=== PATIENT | female | born 1960 | race Caucasian/White ===

== ENCOUNTER 2016-12-08 19:13 | Emergency (ER) | payer OTHER ==
[~2016-12-08] VITALS: Ht 160 cm; Wt 68.0 kg
[~2016-12-08 19:13] MED LIST: TOPI100T20 PO
[2016-12-08 19:18] VITALS: TEMP 36.6; Ht 160 cm; Wt 68.0 kg
[2016-12-08] MEDS ORDERED: FENTANYL CITRATE INJ 50 MCG/1 ML 2 ML VIAL IV STA ×4 (19:30→22:41)
--- NOTE | 2016-12-08 19:58 | EMERGENCY ROOM VISIT NOTE ---
ED Visit Note First contact with patient: 19:23 CHIEF COMPLAINT: Left Ankle pain HISTORY OF PRESENT ILLNESS: This 56-year-old female patient presents to the emergency department approximally 30 minutes after sustaining an injury to the left ankle when she stepped off of the sidewalk. The patient states she was stepping off of her porch, onto the concrete sidewalk, when she believes her left foot was half off of the curb. The patient states the foot slipped off the curb, and she fell, twisting her left ankle. The patient denies head injury. She complains of left ankle pain, deformity, swelling. The patient complains of pain along the medial aspect of the ankle. The patient denies pain of the foot. The patient rates the pain as constant and 10/10. The patient is not able to bear weight on the foot. Constant pain, worse with movement, weight bearing, and the dependent position. No knee pain, the patient is able to move their toes. No numbness or weakness of the foot, no laceration. The patient has not had a previous fracture to this ankle. The patient has taken nothing for the pain. The patient denies any other injury. The patient did last eat at 1830 hrs. She states she had 2 pieces of pizza at that time. REVIEW OF SYSTEMS: A 6 system review of systems was completed with positives and pertinent negatives listed in the HPI. ALLERGIES: None MEDICATIONS: Topamax PMH: Migraines SOCIAL HISTORY: Lives locally with family. She denies drug, alcohol, tobacco use. PHYSICAL EXAM: Vital Signs: Reviewed Nurse's notes, vital signs stable. GENERAL : 56-year-old female, no acute distress, but appears in pain, well-developed, well-nourished. MENTAL STATUS: Alert, oriented to person place and time, and cooperative. MUSCULOSKELETAL: The left ankle is swollen and tender over the lateral malleolus, but the skin is intact and there is no ligamentous instability. There is deformity and bruising on the medial aspect of the ankle. There is no fifth metatarsal tenderness. There is no tenderness over the rest of the foot. There is no calf or tibia/fibular tenderness. There is no visual deformity of the foot. The foot and toes are warm and well-perfused. Dorsalis pedis pulse 2+. Sensation to pain and light touch is intact. Capillary refill less than 2 seconds. RADIOLOGY: X-Ray Left Ankle (pre-reduction): FINDINGS: There is a displaced/dislocated trimalleolar left ankle fracture. The talus demonstrates up to 11 mm of lateral displacement. Diffuse soft tissue swelling. No radiopaque foreign bodies. IMPRESSION: Lateral displaced/dislocated trimalleolar left ankle fracture. X-Ray Left Ankle (post-reduction): FINDINGS: Overlying splint material obscures fine bony detail. Status post reduction of the left ankle trimalleolar fracture. There is improved anatomic alignment. There is approximately 4 mm of lateral displacement of the talus in relation to the distal tibia. There is also 2 mm of lateral displacement and 7 mm of posterior displacement of the distal fibular fracture. Minimally displaced fracture of the posterior malleolus. Plantar heel spur. IMPRESSION: Trimalleolar left ankle fracture with improved anatomic alignment status post reduction. However, the fractures still demonstrate displacement as described above. CT-Scan Left Ankle: FINDINGS: There is again noted a trimalleolar left ankle fracture. The vertical posterior malleolus fracture demonstrates 3 mm of superior displacement. The distal fibular oblique fracture demonstrates 6 mm of posterior displacement and mild overlap. The oblique medial malleolus fracture is slightly distracted. There is no dislocation at this time. Diffuse subcutaneous edema within the left ankle. The Achilles tendon appears intact. IMPRESSION: Slightly displaced trimalleolar left ankle fracture as described above. EMERGENCY DEPARTMENT COURSE: I examined the patient. An IV was inserted, and the patient was given 50 mcg fentanyl. X-rays of the ankle were reviewed by myself and read by radiology and reveals a laterally displaced/dislocated trimalleolar fracture. The patient did continue to complain of pain, despite 50 g of fentanyl, so she was given another 50 g IV. I consulted with Dr. Orantes, who did come to evaluate and reduce the fracture. I spoke with Dr. Álvarez, who states the patient is not a candidate for conscious sedation at this time, as she ate 2 hours prior to arrival. They discussed options for pain management and alternatives to sedation. We discussed options with the patient, including pain management and relaxation with Fentanyl and Versed for reduction of the fracture, and the patient is in agreement with this plan. Verbal consent was obtained to perform the procedure. The patient was given 50 g fentanyl and 2 mg Versed via IV for relaxation and pain control prior to the reduction. Reduction was performed by Dr. Orantes with my assistance and RN at bedside. The patient was placed in a posterior leg with stirrup orthoglass splint by Dr. Orantes. Please see his dictation for more detailed note. Neurovascular status was rechecked and intact. Post- reduction X-rays were performed. Dr. Orantes ordered a CT scan of the leg to more closely evaluate the fracture. The patient requested a walker vs. crutches. She was given a home pack of pain medication and discharge instructions by Dr. Orantes and myself. The patient was given a fourth dose of 50 g fentanyl IV prior to discharge. The patient was discharged home in good condition. I did query the PDMP database prior to prescribing opioids with no suspicious findings noted. The patient's blood pressure and vital signs remained stable throughout her ED visit. DIFFERENTIAL DIAGNOSES: Contusion, fracture, sprain, strain, and others DIAGNOSIS: Displaced/dislocated trimalleolar left ankle fracture DISCHARGE INSTRUCTIONS: ORTHOPEDIC INSTRUCTIONS: DO NOT drive, drink alcohol, operate machinery, or perform dangerous activities today. You were given medications in the ER that can affect your ability to safely function or operate a vehicle. Oxycodone (OxyIR) 5mg: Take 1-2 pills every four hours as needed for breakthrough pain. Avoid alcohol, operating machinery or dangerous equipment, working on ladders or roofs, DRIVING, or situations where being under the influence may be dangerous. It is recommended to use an daxu-zrf-fyzsxpo stool softener such as Colace, 100mg twice daily while taking this medication to avoid constipation. Ibuprofen(Motrin, Advil) may be used for fever or pain. Use 600mg every six hours as needed. Take with food. Avoid using more than 2400mg in a 24 hour period. Do not use 2400mg per day for more than three consecutive days without physician direction. Prolonged inappropriate use can lead to stomach upset or ulcers. (AND/OR) Acetaminophen(Tylenol) may be used for fever or pain. Use 1000mg every six hours as needed. Avoid using more than 3000mg in a [address] Orantes, please start taking 325mg Aspirin twice daily. Ice compresses for 20 minutes at a time four times daily for 2-3 days. Use the crutches or walker as instructed. Rest and elevate your injury. Do not get the splint wet. If your splint feels excessively tight, you have worsening pain, develop numbness or tingling, or your digits appear blue, loosen the jordan wrap. Then reapply the jordan wrap gently without removing the splint. If your symptoms are not quickly relieved return to the ER for re- evaluation. Return to the ER immediately for any numbness, tingling, severe pain, extreme swelling in the extremity or as needed. Follow-up on Tuesday with Dr. Orantes at your appointment. You can contact the office tomorrow morning if you do not have an appointment already scheduled. Current/Historical Medications Scheduled Topiramate (Topamax), 100 MG PO BID Scheduled PRN Oxycodone Ir (Roxicodone Ir), 1-2 TAB PO Q4H PRN for Pain Allergies Coded Allergies: No Known Allergies (Unverified , 01/15/13) Vital Signs Date Time Temp Pulse Resp B/P (MAP) Pulse Ox O2 Delivery O2 Flow Rate FiO2 12/08/16 21:30 76 18 127/80 99 12/08/16 21:28 89 13 96 12/08/16 21:24 98 12/08/16 21:23 84 16 96 12/08/16 21:20 121/81 12/08/16 21:18 99 23 95 12/08/16 21:15 128/82 12/08/16 21:13 102 19 94 12/08/16 21:10 138/83 12/08/16 21:08 99 18 98 12/08/16 21:05 147/91 12/08/16 21:03 92 98 12/08/16 20:27 79 20 100 12/08/16 20:04 74 18 98 12/08/16 19:18 36.6 78 18 130/84 98 Room Air Medications Administered Medications (Trade) Dose Ordered Sig/Silas Route Start Time Stop Time Status Last Admin Dose Admin Fentanyl Citrate (Fentanyl Inj) 50 mcg NOW STAT IV 12/08/16 19:30 12/08/16 19:32 DC 12/08/16 19:44 50 MCG Fentanyl Citrate (Fentanyl Inj) 50 mcg NOW STAT IV 12/08/16 20:19 12/08/16 20:20 DC 12/08/16 20:24 50 MCG Fentanyl Citrate (Fentanyl Inj) 50 mcg NOW STAT IV 12/08/16 20:47 12/08/16 20:49 DC 12/08/16 21:05 50 MCG Midazolam HCl (Versed Inj) 2 mg NOW STAT IV 12/08/16 20:47 12/08/16 20:49 DC 12/08/16 21:05 2 MG Departure Information Impression Primary Impression: Closed trimalleolar fracture of ankle Dispostion Home / Self-Care Condition GOOD Prescriptions Oxycodone Ir (Roxicodone Ir) 5 Mg Tab 1-2 TAB PO Q4H Y for Pain, #36 TAB For Initial Treatment Prov: Gay Payne PA-C 12/08/16 Referrals Katherine Feliciano D.O. (PCP) Christopher Orantes M.D. Patient Instructions ED F[facility] Ankle General, [facility] Additional Instructions ORTHOPEDIC INSTRUCTIONS: DO NOT drive, drink alcohol, operate machinery, or perform dangerous activities today. You were given medications in the ER that can affect your ability to safely function or operate a vehicle. Oxycodone (OxyIR) 5mg: Take 1-2 pills every four hours as needed for breakthrough pain. Avoid alcohol, operating machinery or dangerous equipment, working on ladders or roofs, DRIVING, or situations where being under the influence may be dangerous. It is recommended to use an pdbm-wuh-faenqst stool softener such as Colace, 100mg twice daily while taking this medication to avoid constipation. Ibuprofen(Motrin, Advil) may be used for fever or pain. Use 600mg every six hours as needed. Take with food. Avoid using more than 2400mg in a 24 hour period. Do not use 2400mg per day for more than three consecutive days without physician direction. Prolonged inappropriate use can lead to stomach upset or ulcers. (AND/OR) Acetaminophen(Tylenol) may be used for fever or pain. Use 1000mg every six hours as needed. Avoid using more than 3000mg in a [address] Orantes, please start taking 325mg Aspirin twice daily. Ice compresses for 20 minutes at a time four times daily for 2-3 days. Use the crutches or walker as instructed. Rest and elevate your injury. Do not get the splint wet. If your splint feels excessively tight, you have worsening pain, develop numbness or tingling, or your digits appear blue, loosen the jordan wrap. Then reapply the jordan wrap gently without removing the splint. If your symptoms are not quickly relieved return to the ER for re- evaluation. Return to the ER immediately for any numbness, tingling, severe pain, extreme swelling in the extremity or as needed. Follow-up on Tuesday with Dr. Orantes at your appointment. You can contact the office tomorrow morning if you do not have an appointment already scheduled. Problem Qualifiers Primary Impression: Closed trimalleolar fracture of ankle Encounter type: initial encounter Laterality: left Qualified Codes: S82.852A - Displaced trimalleolar fracture of left lower leg, initial encounter for closed fracture
--- NOTE | 2016-12-08 20:16 | DIAGNOSTIC IMAGING REPORT ---
LEFT ANKLE MIN 3 VIEWS ROUTINE CLINICAL HISTORY: fall, left ankle pain/deformity COMPARISON STUDY: None. FINDINGS: There is a displaced/dislocated trimalleolar left ankle fracture. The talus demonstrates up to 11 mm of lateral displacement. Diffuse soft tissue swelling. No radiopaque foreign bodies. IMPRESSION: Lateral displaced/dislocated trimalleolar left ankle fracture. Electronically signed by: Jace Carvajal M.D. 12/08/2016 8:15 PM Dictated Date/Time: 12/08/2016 8:14 PM
[2016-12-08] MEDS ORDERED: MIDAZOLAM HCL 1 MG/ML 2ML VIAL IV STA (20:47)
[2016-12-08] MEDS ORDERED: OXYCODONE IR HOME PACK PO ONE (21:30)
--- NOTE | 2016-12-08 21:49 | DIAGNOSTIC IMAGING REPORT ---
LEFT ANKLE 2 VIEWS CLINICAL HISTORY: LT ANKLE POST REDUCTION COMPARISON STUDY: Left ankle 12/08/2016. FINDINGS: Overlying splint material obscures fine bony detail. Status post reduction of the left ankle trimalleolar fracture. There is improved anatomic alignment. There is approximately 4 mm of lateral displacement of the talus in relation to the distal tibia. There is also 2 mm of lateral displacement and 7 mm of posterior displacement of the distal fibular fracture. Minimally displaced fracture of the posterior malleolus. Plantar heel spur. IMPRESSION: Trimalleolar left ankle fracture with improved anatomic alignment status post reduction. However, the fractures still demonstrate displacement as described above. Electronically signed by: Jace Carvajal M.D. 12/08/2016 9:48 PM Dictated Date/Time: 12/08/2016 9:45 PM
--- NOTE | 2016-12-08 22:24 | DIAGNOSTIC IMAGING REPORT ---
LEFT ANKLE CT CT DOSE: 157.57 mGy.cm HISTORY: Left ankle fracture TECHNIQUE: Multiaxial CT images of the left ankle were performed and reformatted in the sagittal and coronal plane without the use of contrast. A dose lowering technique was utilized adhering to the principles of ALARA. COMPARISON: Left ankle 12/08/2016. FINDINGS: There is again noted a trimalleolar left ankle fracture. The vertical posterior malleolus fracture demonstrates 3 mm of superior displacement. The distal fibular oblique fracture demonstrates 6 mm of posterior displacement and mild overlap. The oblique medial malleolus fracture is slightly distracted. There is no dislocation at this time. Diffuse subcutaneous edema within the left ankle. The Achilles tendon appears intact. IMPRESSION: Slightly displaced trimalleolar left ankle fracture as described above. Electronically signed by: Jace Carvajal M.D. 12/08/2016 10:23 PM Dictated Date/Time: 12/08/2016 10:18 PM
[2016-12-08] MEDS ORDERED: OXYC1TAB3 PO (22:28)
[2016-12-08 23:26] VITALS: BP 104/74; PULSE 77; O2SAT 98
--- NOTE | 2016-12-08 23:50 | ORTHOPEDIC CONSULTATION ---
DATE OF CONSULTATION: 12/08/2016 CHIEF COMPLAINT: Left ankle injury. HISTORY OF PRESENT ILLNESS: Bren is a 56-year-old female who slipped outside of her home earlier this evening, sustaining a trimalleolar fracture dislocation of the left ankle. She was brought to the Emergency Room where she was evaluated with x-rays. She denies prior history of problems and there has not been an injury to another area of the body. Her pain is well controlled. She does not have any numbness or tingling. PAST MEDICAL HISTORY: Significant only for migraines. MEDICATIONS: The only medication she takes is Topamax. PAST SURGICAL HISTORY: The only surgery she has had is tubes tied. REVIEW OF SYSTEMS: Shows no cancers, blood clots, bleeding problems, heart, lung, liver or kidney disease. PHYSICAL EXAMINATION: GENERAL: She is awake, alert, and oriented. EXTREMITIES: There is a lateral deformity of her left ankle. Minor bruising medially. No break in the skin. Dorsalis pedis is faintly trace, capillary refill is 3 seconds. She has just had ice on the top of her foot. Posterior tib pulse cannot be palpated. There is a 1 cm abrasion about the knee. She can flex her knee and lift her leg. She can wiggle her toes. She reports normal sensation throughout the foot. She can dorsiflex and plantarflex her toes with 5-/5 strength limited by pain. She cannot move her ankle. There is tenderness diffusely about the ankle. The lower leg and foot are not tender. Radiographs of the ankle show trimalleolar fracture dislocation with partial lateral subluxation of the ankle joint. Verbal informed consent is obtained. Pain medication consisting of fentanyl IV and anxiolytic consisting of Versed 2 mg is administered. The knee is flexed and the foot is relaxed. Anterior pressure is applied on the toes and the ankle atraumatically slips back into position. A well-padded posterior splint and U-stirrup with an anterior and lateral mold is applied. After the reduction, she had normal sensation. She could wiggle her toes, flex and extend the big toe and had a trace palpable dorsalis pedis pulse with capillary refill less than 2 seconds. IMPRESSION: Trimalleolar fracture with a partial dislocation of the left ankle. PLAN: Findings were discussed with the patient and her family. I have recommended that we reduce her ankle today which she agrees to perform. She had just eaten approximately 1 hour prior to the injury. An atraumatic reduction is obtained with good reduction in the splint. Follow up in my office Tuesday. Watch out for severe pain, swelling, fevers, tingling, numbness, poor circulation or any other problems or questions, please contact my office or come to the Emergency Room. Medication driscoll, she will have OxyIR from the Emergency Room. I also want her to take aspirin 325 b.i.d. and a stool softener. She is to elevate, ice. No weight, crutches or a walker. Keep clean and dry. Plan for surgery next week, likely on after swelling has subsided. We will also obtain CT scan of the ankle tonight to evaluate her posterior malleolar fracture. Post-reduction x-rays showed that she has a very good alignment. There is no residual posterior or lateral subluxation of the talus. She does have a large posterior malleolar fragment, a large oblique fracture of the lateral malleolus and a transverse fracture medially. There does not appear to be any significant comminution.
== END 2016-12-08 23:27 | disposition home or self-care (01) ==
LOC: C.EDB 19:14 → C.EDD 23:27
DX: S82.852A Displaced trimalleolar fracture of left lower leg, initial encounter for closed fracture (principal); W10.1XXA Fall (on)(from) sidewalk curb, initial encounter

== ENCOUNTER → 2016-12-10 | Outpatient (CLI) | payer OTHER ==
[~2016-12-10] MED LIST changes: +OXYC1TAB3 PO
== END | disposition home or self-care (01) ==
LOC: C.CPL 11:18
PROVIDERS: ATTEND Physician Assistant
DX: Z01.810 Encounter for preprocedural cardiovascular examination (principal); S82.852A Displaced trimalleolar fracture of left lower leg, initial encounter for closed fracture; X58.XXXA Exposure to other specified factors, initial encounter

== ENCOUNTER → 2017-06-20 | Outpatient (CLI) | payer OTHER ==
[~2017-06-20] MED LIST changes: -OXYC1TAB3 PO
--- NOTE | 2017-06-21 07:58 | MAMMOGRAPHY REPORT ---
BILATERAL DIGITAL SCREENING MAMMOGRAM TOMOSYNTHESIS WITH CAD: 06/20/2017 CLINICAL HISTORY: Routine screening. TECHNIQUE: Breast tomosynthesis in addition to standard 2D mammography was performed. Current study was also evaluated with a Computer Aided Detection (CAD) system. COMPARISON: Comparison is made to exams dated: 01/27/2016 mammogram, 01/15/2015 mammogram, 01/11/2014 m ammogram, 12/29/2012 mammogram, 03/12/2011 mammogram, and 03/11/2010 mammogram - [facility]. BREAST COMPOSITION: There are scattered areas of fibroglandular density in both breasts. FINDINGS: The parenchymal pattern is unchanged. No developing mass, architectural distortion or clus ter of suspicious microcalcifications is seen in either breast. IMPRESSION: ACR BI-RADS CATEGORY 2: BENIGN There is no mammographic evidence of malignancy. A 1 year screening mammogram is recommended. The pa tient will receive written notification of the results. Approximately 10% of breast cancers are not detected with mammography. A negative mammographic report should not delay biopsy if a clinically suggestive mass is present. Tamika Sutton M.D. ay/:06/20/2017 16:37:52 [employer] Machine Tender: Fernando MARIA(Alexandra)(M), [facility] letter sent: Normal 1/2 BI-RADS Code: ACR BI-RADS Category 2: Benign
== END | disposition home or self-care (01) ==
LOC: C.MAMM 14:43
PROVIDERS: ATTEND Family Medicine
DX: Z12.31 Encounter for screening mammogram for malignant neoplasm of breast (principal)